=== PATIENT | female | born 1995 | race Caucasian/White ===

== ENCOUNTER 2019-02-06 04:13 | Emergency (ER) | payer OTHER ==
[~2019-02-06] VITALS: Ht 177.8 cm; Wt 125.8 kg
--- NOTE | 2019-02-06 04:36 | ED.ADGEN ---
Past History Past Medical History: Anxiety, Constipation, Depression, UTI Adult General Chief Complaint Chief Complaint ".. I got this really severe Rt. flank pain..-06/20.. " .." This started at 3 AM that will bring up.... I'm concerned that may be having a kidney stone because my dad has stones... my sister had kidney stones... " HPI HPI Patient is a 23 year old [place] who presents with above hx and Rt. flank pain. Patient denies any trauma. Pt. is very concerned she may be having a kidney stone because of strong family Hx. Patient herself has never had a renal stone verified. Patient denies any intake of bad food. Patient has had urinary tract infections in the past last was approximately a few months ago. Patient did have a stool today. Patient occasionally does have constipation. . Patient follows with Dr. Ruff in [facility]. No history of STDs. No history of pregnancies. Does have a history of diabetes, bipolar and anxiety. No recent travel. No specific ill contacts. No history of intake of bad food. Patient started acutely approximately 3 AM today. No history of vaginal discharge. No fears of STD. No history of trauma. Review of Systems Review of Systems Constitutional: Denies fever or chills [] Eyes: Denies change in visual acuity, redness, or eye pain [] HENT: Denies nasal congestion or sore throat [] Respiratory: Denies cough or shortness of breath [] Cardiovascular: No additional information not addressed in HPI [] GI: Complains of right flank abdomen pain, nausea,. Denies vomiting, bloody stools or diarrhea [] : Denies dysuria or hematuria [] Musculoskeletal: Denies back pain or joint pain [] Integument: Denies rash or skin lesions [] Neurologic: Denies headache, focal weakness or sensory changes [] Endocrine: Denies polyuria or polydipsia [] All other systems were reviewed and found to be within normal limits, except as documented in this note. Family History Family History Dad and sister have renal stones Current Medications Current Medications Current Medications Medications (Trade) Dose Ordered Sig/Rosalia Start Time Stop Time Status Last Admin Dose Admin Famotidine (Pepcid Vial) 20 mg 1X ONCE 02/06/19 05:30 02/06/19 05:31 DC 02/06/19 05:53 20 MG Info (Do NOT chart on this entry -- for MONITORING) 1 each PRN DAILY PRN 02/06/19 06:00 02/06/19 07:39 DC Iohexol (Omnipaque 240 Mg/ml) 30 ml 1X ONCE 02/06/19 06:00 02/06/19 06:01 DC 02/06/19 06:53 30 ML Iohexol (Omnipaque 300 Mg/ml) 75 ml 1X ONCE 02/06/19 06:00 02/06/19 06:01 DC 02/06/19 06:53 75 ML Ketorolac Tromethamine (Toradol 30mg Vial) 30 mg 1X ONCE 02/06/19 05:30 02/06/19 05:31 DC 02/06/19 05:54 30 MG Lactated Ringer's 1,000 ml @ 1,000 mls/hr Q1H 02/06/19 05:30 02/06/19 06:29 DC 02/06/19 05:48 1,000 MLS/HR Magnesium Hydroxide (Milk Of Magnesia) 2,400 mg 1X ONCE 02/06/19 07:15 02/06/19 07:22 DC 02/06/19 07:32 2,400 MG Ondansetron HCl (Zofran) 8 mg 1X ONCE 02/06/19 05:30 02/06/19 05:31 DC 02/06/19 05:52 8 MG Allergies Allergies Allergies Coded Allergies Type Severity Reaction Last Updated Verified doxycycline Allergy Unknown 02/06/19 Yes Physical Exam Physical Exam Constitutional: Moderately acute distress, non-toxic appearance. [] HENT: Normocephalic, atraumatic, bilateral external ears normal, oropharynx moist, no oral exudates, nose nasal ring Eyes: PERRLA, EOMI, conjunctiva normal, no discharge. [] Glasses Neck: Normal range of motion, no tenderness, supple, no stridor. [] Cardiovascular:Heart rate regular rhythm, no murmur [] Lungs & Thorax: Bilateral breath sounds equal at apexes on auscultation [] Abdomen: Bowel sounds normal, soft, right flank and upper right quadrant tenderness, distended, no masses, no pulsatile masses. Patient Defers vaginal and rectal exam at this time. No true rebound. Obese Skin: Warm, dry, no erythema, no rash. [] Back: No tenderness, right CVA tenderness. [] Extremities: No tenderness, no cyanosis, no clubbing, ROM intact, no edema. [No true psoas but does have some mild obturator sign. Tattoo of Rafa the cat- Left Ankle Neurologic: Alert and oriented X 3, normal motor function, normal sensory function, no focal deficits noted. [] Psychologic: Affect anxious, judgement normal, mood normal. [] Current Patient Data Vital Signs Vital Signs Date Time Temp Pulse Resp B/P (MAP) Pulse Ox O2 Delivery O2 Flow Rate FiO2 02/06/19 07:30 74 18 106/58 (74) 98 Room Air 02/06/19 04:20 98.6 Lab Results Laboratory Tests Test 02/06/19 04:45 02/06/19 04:56 02/06/19 05:38 Urine Collection Type Unknown Urine Color Yellow Urine Clarity Clear Urine pH 5.0 Urine Specific [place] >=1.030 Urine Protein Neg (NEG-TRACE) Urine Glucose (UA) Neg mg/dL (NEG) Urine Ketones (Stick) Trace mg/dL (NEG) Urine Blood Neg (NEG) Urine Nitrite Neg (NEG) Urine Bilirubin Neg (NEG) Urine Urobilinogen Dipstick 0.2 mg/dL (0.2 mg/dL) Urine Leukocyte Esterase Neg (NEG) Urine RBC 0 /HPF (0-2) Urine WBC Occ /HPF (0-4) Urine Squamous Epithelial Cells Few /LPF Urine Bacteria 0 /HPF (0-FEW) Urine Opiates Screen Neg (NEG) Urine Methadone Screen Neg (NEG) Urine Barbiturates Neg (NEG) Urine Phencyclidine Screen Neg (NEG) Urine Amphetamine/Methamphetamine Neg (NEG) Urine Benzodiazepines Screen Neg (NEG) Urine Cocaine Screen Neg (NEG) Urine Cannabinoids Screen Neg (NEG) Urine Ethyl Alcohol Neg (NEG) POC Urine HCG, Qualitative hcg negative (Negative) White Blood Count 12.6 x10^3/uL (4.0-11.0) H Red Blood Count 5.26 x10^6/uL (3.50-5.40) Hemoglobin 13.3 g/dL (12.0-15.5) Hematocrit 41.0 % (36.0-47.0) Mean Corpuscular Volume 78 fL (79-100) L Mean Corpuscular Hemoglobin 25 pg (25-35) Mean Corpuscular Hemoglobin Concent 32 g/dL (31-37) Red Cell Distribution Width 15.3 % (11.5-14.5) H Platelet Count 228 x10^3/uL (140-400) Neutrophils (%) (Auto) 69 % (31-73) Lymphocytes (%) (Auto) 23 % (24-48) L Monocytes (%) (Auto) 6 % (0-9) Eosinophils (%) (Auto) 1 % (0-3) Basophils (%) (Auto) 1 % (0-3) Neutrophils # (Auto) 8.7 x10^3uL (1.8-7.7) H Lymphocytes # (Auto) 2.9 x10^3/uL (1.0-4.8) Monocytes # (Auto) 0.7 x10^3/uL (0.0-1.1) Eosinophils # (Auto) 0.1 x10^3/uL (0.0-0.7) Basophils # (Auto) 0.1 x10^3/uL (0.0-0.2) Prothrombin Time 9.5 SEC (9.4-11.4) Prothrombin Time INR 1.0 (0.9-1.1) PTT 25 SEC (23-33) Sodium Level 139 mmol/L (136-145) Potassium Level 3.9 mmol/L (3.5-5.1) Chloride Level 103 mmol/L (98-107) Carbon Dioxide Level 29 mmol/L (21-32) Anion Gap 7 (6-14) Blood Urea Nitrogen 10 mg/dL (7-20) Creatinine 0.8 mg/dL (0.6-1.0) Estimated GFR (Cockcroft-Gault) 90.5 Glucose Level 96 mg/dL (70-99) Calcium Level 9.3 mg/dL (8.5-10.1) Total Bilirubin 0.2 mg/dL (0.2-1.0) Direct Bilirubin 0.1 mg/dL (0.0-0.2) Aspartate Amino Transferase (AST) 26 U/L (15-37) Alanine Aminotransferase (ALT) 48 U/L (14-59) Alkaline Phosphatase 84 U/L (46-116) Troponin I Quantitative < 0.017 ng/mL (0-0.055) Total Protein 7.6 g/dL (6.4-8.2) Albumin 3.6 g/dL (3.4-5.0) Lipase 104 U/L (73-393) EKG EKG [] Radiology/Procedures Radiology/Procedures I interpretation acute abdomen shows no acute cardiopulmonary findings. No free air in the diaphragm. There is stool throughout the colon. Some consideration for constipation.[] CT of abdomen and pelvis showed no obvious hydronephrosis, appendicitis, free fluid or significant surgical pathology. See formal report when available. Course & Med Decision Making Course & Med Decision Making Pertinent Labs and Imaging studies reviewed. (See chart for details) She stay on a clear fluid diet only for the next 48 hours. No solids no milk products must allow bowel rest. Push fluids. Follow up urine and lab results with primary. Follow-up CT results with primary. If no improvement must have reexam. Currently patient pain is minimal at time of discharge. Patient's pain is minimal at time of discharge. [] Final Impression Final Impression 1. Abdomen Pain[] 2. Constipation 3. Mild leukocytosis viral differential Dragon Disclaimer Dragon Disclaimer This electronic medical record was generated, in whole or in part, using a voice recognition dictation system. Dragon Disclaimer This chart was dictated in whole or in part using Voice Recognition software in a busy, high-work load, and often noisy Emergency Department environment. It may contain unintended and wholly unrecognized errors or omissions. Dragon Disclaimer This chart was dictated in whole or in part using Voice Recognition software in a busy, high-work load, and often noisy Emergency Department environment. It may contain unintended and wholly unrecognized errors or omissions. Discharge Summary Visit Information Final Diagnosis Problems Medical Problems: (1) Pain in the abdomen Status: Acute Brief Hospital Course Allergies Allergies Coded Allergies Type Severity Reaction Last Updated Verified doxycycline Allergy Unknown 02/06/19 Yes Vital Signs Vital Signs Date Time Temp Pulse Resp B/P (MAP) Pulse Ox O2 Delivery O2 Flow Rate FiO2 02/06/19 07:30 74 18 106/58 (74) 98 Room Air 02/06/19 04:20 98.6 Lab Results Laboratory Tests Test 02/06/19 04:45 02/06/19 04:56 02/06/19 05:38 Urine Collection Type Unknown Urine Color Yellow Urine Clarity Clear Urine pH 5.0 Urine Specific [place] >=1.030 Urine Protein Neg (NEG-TRACE) Urine Glucose (UA) Neg mg/dL (NEG) Urine Ketones (Stick) Trace mg/dL (NEG) Urine Blood Neg (NEG) Urine Nitrite Neg (NEG) Urine Bilirubin Neg (NEG) Urine Urobilinogen Dipstick 0.2 mg/dL (0.2 mg/dL) Urine Leukocyte Esterase Neg (NEG) Urine RBC 0 /HPF (0-2) Urine WBC Occ /HPF (0-4) Urine Squamous Epithelial Cells Few /LPF Urine Bacteria 0 /HPF (0-FEW) Urine Opiates Screen Neg (NEG) Urine Methadone Screen Neg (NEG) Urine Barbiturates Neg (NEG) Urine Phencyclidine Screen Neg (NEG) Urine Amphetamine/Methamphetamine Neg (NEG) Urine Benzodiazepines Screen Neg (NEG) Urine Cocaine Screen Neg (NEG) Urine Cannabinoids Screen Neg (NEG) Urine Ethyl Alcohol Neg (NEG) Bedside Urine HCG, Qualitative hcg negative (Negative) White Blood Count 12.6 x10^3/uL (4.0-11.0) Red Blood Count 5.26 x10^6/uL (3.50-5.40) Hemoglobin 13.3 g/dL (12.0-15.5) Hematocrit 41.0 % (36.0-47.0) Mean Corpuscular Volume 78 fL (79-100) Mean Corpuscular Hemoglobin 25 pg (25-35) Mean Corpuscular Hemoglobin Concent 32 g/dL (31-37) Red Cell Distribution Width 15.3 % (11.5-14.5) Platelet Count 228 x10^3/uL (140-400) Neutrophils (%) (Auto) 69 % (31-73) Lymphocytes (%) (Auto) 23 % (24-48) Monocytes (%) (Auto) 6 % (0-9) Eosinophils (%) (Auto) 1 % (0-3) Basophils (%) (Auto) 1 % (0-3) Neutrophils # (Auto) 8.7 x10^3uL (1.8-7.7) Lymphocytes # (Auto) 2.9 x10^3/uL (1.0-4.8) Monocytes # (Auto) 0.7 x10^3/uL (0.0-1.1) Eosinophils # (Auto) 0.1 x10^3/uL (0.0-0.7) Basophils # (Auto) 0.1 x10^3/uL (0.0-0.2) Prothrombin Time 9.5 SEC (9.4-11.4) Prothromb Time International Ratio 1.0 (0.9-1.1) Activated Partial Thromboplast Time 25 SEC (23-33) Sodium Level 139 mmol/L (136-145) Potassium Level 3.9 mmol/L (3.5-5.1) Chloride Level 103 mmol/L (98-107) Carbon Dioxide Level 29 mmol/L (21-32) Anion Gap 7 (6-14) Blood Urea Nitrogen 10 mg/dL (7-20) Creatinine 0.8 mg/dL (0.6-1.0) Estimated GFR (Cockcroft-Gault) 90.5 Glucose Level 96 mg/dL (70-99) Calcium Level 9.3 mg/dL (8.5-10.1) Total Bilirubin 0.2 mg/dL (0.2-1.0) Direct Bilirubin 0.1 mg/dL (0.0-0.2) Aspartate Amino Transf (AST/SGOT) 26 U/L (15-37) Alanine Aminotransferase (ALT/SGPT) 48 U/L (14-59) Alkaline Phosphatase 84 U/L (46-116) Troponin I Quantitative < 0.017 ng/mL (0-0.055) Total Protein 7.6 g/dL (6.4-8.2) Albumin 3.6 g/dL (3.4-5.0) Lipase 104 U/L (73-393) Brief Hospital Course Ms. Corey is a 23 old female who presented with Rt . upper and Rt. flank pain. Suspect component of constipation. No findings of Hydronephrosis or kidneys stone. Discharge Information Condition at Discharge: Improved, Stable Disposition/Orders: D/C to Home Dischare Medications Current Medications Lactated Ringer's 1,000 ml @ 1,000 mls/hr Q1H IV Last administered on at 05:48; Admin Dose 1,000 MLS/HR; Start 02/06/19 at 05:30; Stop 02/06/19 at 06:29; Status DC Ondansetron HCl (Zofran) 8 mg 1X ONCE IV Last administered on 02/06/19at 05:52 ; Admin Dose 8 MG; Start 02/06/19 at 05:30; Stop 02/06/19 at 05:31; Status DC Famotidine (Pepcid Vial) 20 mg 1X ONCE IVP Last administered on 02/06/19at 05: 53; Admin Dose 20 MG; Start 02/06/19 at 05:30; Stop 02/06/19 at 05:31; Status DC Ketorolac Tromethamine (Toradol 30mg Vial) 30 mg 1X ONCE IV Last administered on 02/06/19at 05:54; Admin Dose 30 MG; Start 02/06/19 at 05:30; Stop 02/06/19 at 05:31; Status DC Iohexol (Omnipaque 240 Mg/ml) 30 ml 1X ONCE PO Last administered on 02/06/19at 06:53; Admin Dose 30 ML; Start 02/06/19 at 06:00; Stop 02/06/19 at 06:01; Status DC Iohexol (Omnipaque 300 Mg/ml) 75 ml 1X ONCE IV Last administered on 02/06/19at 06:53; Admin Dose 75 ML; Start 02/06/19 at 06:00; Stop 02/06/19 at 06:01; Status DC Info (Do NOT chart on this entry -- for MONITORING) 1 each PRN DAILY PRN MC SEE COMMENTS; Start 02/06/19 at 06:00; Stop 02/06/19 at 07:39; Status DC Magnesium Hydroxide (Milk Of Magnesia) 2,400 mg 1X ONCE PO Last administered on 02/06/19at 07:32; Admin Dose 2,400 MG; Start 02/06/19 at 07:15; Stop 02/06/19 at 07:22; Status DC Discharge Summary Visit Information Final Diagnosis Problems Medical Problems: (1) Pain in the abdomen Status: Acute Brief Hospital Course Allergies Allergies Coded Allergies Type Severity Reaction Last Updated Verified doxycycline Allergy Unknown 02/06/19 Yes Vital Signs Vital Signs Date Time Temp Pulse Resp B/P (MAP) Pulse Ox O2 Delivery O2 Flow Rate FiO2 02/06/19 07:30 74 18 106/58 (74) 98 Room Air 02/06/19 04:20 98.6 Lab Results Laboratory Tests Test 02/06/19 04:45 02/06/19 04:56 02/06/19 05:38 Urine Collection Type Unknown Urine Color Yellow Urine Clarity Clear Urine pH 5.0 Urine Specific [place] >=1.030 Urine Protein Neg (NEG-TRACE) Urine Glucose (UA) Neg mg/dL (NEG) Urine Ketones (Stick) Trace mg/dL (NEG) Urine Blood Neg (NEG) Urine Nitrite Neg (NEG) Urine Bilirubin Neg (NEG) Urine Urobilinogen Dipstick 0.2 mg/dL (0.2 mg/dL) Urine Leukocyte Esterase Neg (NEG) Urine RBC 0 /HPF (0-2) Urine WBC Occ /HPF (0-4) Urine Squamous Epithelial Cells Few /LPF Urine Bacteria 0 /HPF (0-FEW) Urine Opiates Screen Neg (NEG) Urine Methadone Screen Neg (NEG) Urine Barbiturates Neg (NEG) Urine Phencyclidine Screen Neg (NEG) Urine Amphetamine/Methamphetamine Neg (NEG) Urine Benzodiazepines Screen Neg (NEG) Urine Cocaine Screen Neg (NEG) Urine Cannabinoids Screen Neg (NEG) Urine Ethyl Alcohol Neg (NEG) Bedside Urine HCG, Qualitative hcg negative (Negative) White Blood Count 12.6 x10^3/uL (4.0-11.0) Red Blood Count 5.26 x10^6/uL (3.50-5.40) Hemoglobin 13.3 g/dL (12.0-15.5) Hematocrit 41.0 % (36.0-47.0) Mean Corpuscular Volume 78 fL (79-100) Mean Corpuscular Hemoglobin 25 pg (25-35) Mean Corpuscular Hemoglobin Concent 32 g/dL (31-37) Red Cell Distribution Width 15.3 % (11.5-14.5) Platelet Count 228 x10^3/uL (140-400) Neutrophils (%) (Auto) 69 % (31-73) Lymphocytes (%) (Auto) 23 % (24-48) Monocytes (%) (Auto) 6 % (0-9) Eosinophils (%) (Auto) 1 % (0-3) Basophils (%) (Auto) 1 % (0-3) Neutrophils # (Auto) 8.7 x10^3uL (1.8-7.7) Lymphocytes # (Auto) 2.9 x10^3/uL (1.0-4.8) Monocytes # (Auto) 0.7 x10^3/uL (0.0-1.1) Eosinophils # (Auto) 0.1 x10^3/uL (0.0-0.7) Basophils # (Auto) 0.1 x10^3/uL (0.0-0.2) Prothrombin Time 9.5 SEC (9.4-11.4) Prothromb Time International Ratio 1.0 (0.9-1.1) Activated Partial Thromboplast Time 25 SEC (23-33) Sodium Level 139 mmol/L (136-145) Potassium Level 3.9 mmol/L (3.5-5.1) Chloride Level 103 mmol/L (98-107) Carbon Dioxide Level 29 mmol/L (21-32) Anion Gap 7 (6-14) Blood Urea Nitrogen 10 mg/dL (7-20) Creatinine 0.8 mg/dL (0.6-1.0) Estimated GFR (Cockcroft-Gault) 90.5 Glucose Level 96 mg/dL (70-99) Calcium Level 9.3 mg/dL (8.5-10.1) Total Bilirubin 0.2 mg/dL (0.2-1.0) Direct Bilirubin 0.1 mg/dL (0.0-0.2) Aspartate Amino Transf (AST/SGOT) 26 U/L (15-37) Alanine Aminotransferase (ALT/SGPT) 48 U/L (14-59) Alkaline Phosphatase 84 U/L (46-116) Troponin I Quantitative < 0.017 ng/mL (0-0.055) Total Protein 7.6 g/dL (6.4-8.2) Albumin 3.6 g/dL (3.4-5.0) Lipase 104 U/L (73-393) Brief Hospital Course Ms. Corey is a 23 old [sex] who presented with [ ] Discharge Information Dischare Medications Current Medications Lactated Ringer's 1,000 ml @ 1,000 mls/hr Q1H IV Last administered on at 05:48; Admin Dose 1,000 MLS/HR; Start 02/06/19 at 05:30; Stop 02/06/19 at 06:29; Status DC Ondansetron HCl (Zofran) 8 mg 1X ONCE IV Last administered on 02/06/19at 05:52 ; Admin Dose 8 MG; Start 02/06/19 at 05:30; Stop 02/06/19 at 05:31; Status DC Famotidine (Pepcid Vial) 20 mg 1X ONCE IVP Last administered on 02/06/19at 05: 53; Admin Dose 20 MG; Start 02/06/19 at 05:30; Stop 02/06/19 at 05:31; Status DC Ketorolac Tromethamine (Toradol 30mg Vial) 30 mg 1X ONCE IV Last administered on 02/06/19at 05:54; Admin Dose 30 MG; Start 02/06/19 at 05:30; Stop 02/06/19 at 05:31; Status DC Iohexol (Omnipaque 240 Mg/ml) 30 ml 1X ONCE PO Last administered on 02/06/19at 06:53; Admin Dose 30 ML; Start 02/06/19 at 06:00; Stop 02/06/19 at 06:01; Status DC Iohexol (Omnipaque 300 Mg/ml) 75 ml 1X ONCE IV Last administered on 02/06/19at 06:53; Admin Dose 75 ML; Start 02/06/19 at 06:00; Stop 02/06/19 at 06:01; Status DC Info (Do NOT chart on this entry -- for MONITORING) 1 each PRN DAILY PRN MC SEE COMMENTS; Start 02/06/19 at 06:00; Stop 02/06/19 at 07:39; Status DC Magnesium Hydroxide (Milk Of Magnesia) 2,400 mg 1X ONCE PO Last administered on 02/06/19at 07:32; Admin Dose 2,400 MG; Start 02/06/19 at 07:15; Stop 02/06/19 at 07:22; Status DC RENU ENG MD Feb 06, 2019 04:36
[2019-02-06] MEDS ORDERED: IV RINGERS SOLUTION,LACTATED 1,000 ML IV SCH (05:30)
[2019-02-06] MEDS ORDERED: ONDANSETRON PF 4 MG/2 ML VIAL. IV ONE (05:30)
[2019-02-06] MEDS ORDERED: FAMOTIDINE 20 MG/2 ML VIAL IVP ONE (05:30)
[2019-02-06] MEDS ORDERED: KETOROLAC 30 MG/ML VIAL. IV ONE (05:30)
[2019-02-06 05:33] LABS: BARBITURATES NEG (NEG); BENZODIAZEPINES NEG (NEG); CANNABINOIDS NEG (NEG); COCAINE NEG (NEG); METHADONE NEG (NEG); OPIATES NEG (NEG); PHENCYCLIDINE NEG (NEG)
[2019-02-06 05:35] LABS: BACTERIA,URINE 0 /HPF (0-FEW); BILIRUBIN,URINE NEG (NEG); CLARITY,URINE CLEAR; COLOR,URINE YELLOW; GLUCOSE,URINE NEG (NEG); NITRITE,URINE NEG (NEG); RBC,URINE 0 /HPF (0-2); SQUAMOUS EPITHELIAL CELL,UR FEW /LPF; UROBILINOGEN,URINE 0.2 mg/dL (0.2 mg/dL); WBC,URINE OCC /HPF (0-4)
[2019-02-06 05:37] LABS: AMPHETAMINE/METHAMPHETAMINE NEG (NEG)
--- NOTE | 2019-02-06 05:46 | RAD ---
Acute abdominal series to include a PA chest 02/06/2019 Clinical History: Abdominal pain. A PA digital radiograph of the chest was obtained. Supine and erect AP digital radiographs of the abdomen/pelvis were obtained. No previous studies are available for comparison. The cardiac and mediastinal silhouettes are within normal limits in size and configuration. No pulmonary infiltrate is seen. No pleural effusion or pneumothorax is noted. The abdominal bowel gas pattern is nonobstructive. A moderate amount stool seen throughout the colon. There is no evidence of free air. No radiopaque calculus is seen. The osseous structures are grossly intact. Impression: Negative study. Electronically signed by: Michele Ferreira MD (02/06/2019 5:43 AM) [id number]
[2019-02-06 05:54] LABS: BASO # 0.1 x10^3/uL (0.0-0.2); BASO % 1 % (0-3); EOS # 0.1 x10^3/uL (0.0-0.7); EOS % 1 % (0-3); HEMOGLOBIN 13.3 g/dL (12.0-15.5); LYMPH # 2.9 x10^3/uL (1.0-4.8); LYMPH % 23 % (24-48); MEAN CORPUSCULAR HEMOGLOBIN 25 pg (25-35); MEAN CORPUSCULAR HGB CONC 32 g/dL (31-37); MEAN CORPUSCULAR VOLUME 78 fL (79-100); MONO # 0.7 x10^3/uL (0.0-1.1); MONO % 6 % (0-9); NEUT # 8.7 x10^3uL (1.8-7.7); NEUT % 69 % (31-73); PLATELET COUNT 228 x10^3/uL (140-400); RED BLOOD COUNT 5.26 x10^6/uL (3.50-5.40); RED CELL DISTRIBUTION WIDTH 15.3 % (11.5-14.5); WHITE BLOOD COUNT 12.6 x10^3/uL (4.0-11.0)
[2019-02-06] MEDS ORDERED: IOHEXOL 240 MG/ML 50ML VIAL. PO ONE (06:00)
[2019-02-06] MEDS ORDERED: CONTRAST GIVEN MC PRN (06:00)
[2019-02-06] MEDS ORDERED: IOHEXOL 300 MG/ML 75 ML VIAL. IV ONE (06:00)
[2019-02-06 06:18] LABS: ALBUMIN 3.6 g/dL (3.4-5.0); CALCIUM 9.3 mg/dL (8.5-10.1); CREATININE 0.8 mg/dL (0.6-1.0); DIRECT BILIRUBIN 0.1 mg/dL (0.0-0.2); GFR 90.5; POTASSIUM 3.9 mmol/L (3.5-5.1); TOTAL BILIRUBIN 0.2 mg/dL (0.2-1.0)
[2019-02-06 06:37] LABS: TOTAL PROTEIN 7.6 g/dL (6.4-8.2)
[2019-02-06] MEDS ORDERED: MAGNESIUM HYDROXIDE 2,400 MG/30 ML ORAL.SUSP. PO ONE (07:15)
[2019-02-06 07:30] VITALS: BP 106/58
--- NOTE | 2019-02-06 07:40 | RAD ---
DATE OF SERVICE: 02/06/2019 5:39 AM EXAM: CT scan of the abdomen and pelvis with intravenous contrast. CLINICAL HISTORY: Right-sided abdominal and flank pain TECHNIQUE: Axial CT images were obtained through the abdomen and pelvis following the administration of intravenous and oral contrast. Multiplanar 2D reformatted images were also reviewed. Dose lowering technique(s) such as automated exposure control, iterative reconstruction, and mA and/or KV adjustment for patient size was utilized for this examination. CONTRAST: 75 ml of Omnipaque-300. COMPARISON: Abdominal radiographs dated 02/06/2018 at 5:20 AM and 5:21 AM. FINDINGS: An approximately 10 cm segment of the terminal ileum demonstrates mild circumferential mural thickening with mild relative mural hyperenhancement and there is mild hazy perienteric soft tissue density. This is consistent with a nonspecific terminal ileitis. Crohn's disease should be considered. There is mild ascites in the pelvis. There is no perienteric abscess, bowel obstruction, pneumatosis intestinalis, portomesenteric venous gas, or pneumoperitoneum. The appendix is normal in appearance. There is fatty infiltration of the liver. The gallbladder, biliary ductal system, pancreas, spleen, adrenal glands, and kidneys are unremarkable in appearance. The gynecologic structures demonstrate an unremarkable CT appearance. No abdominopelvic lymphadenopathy is seen. The abdominal aorta is normal in course and caliber without aneurysm or dissection. There is a small fat-containing umbilical hernia. Visualized portions of the lung bases are clear. There is a prominent broad-based central disc protrusion at the L4-5 vertebral level producing at least mild narrowing of the central spinal canal. IMPRESSION: 1. Nonspecific terminal ileitis with mild ascites in the pelvis. 2. Fatty infiltration of the liver. 3. Small fat-containing umbilical hernia. 4. Broad-based central disc protrusion at the L4-5 vertebral level. Electronically signed by: Solitario Caballero MD (02/06/2019 7:37 AM) [id number]
== END 2019-02-06 07:35 | disposition home or self-care (01) ==
LOC: ER 04:13
DX: K59.00 Constipation, unspecified (principal); D72.829 Elevated white blood cell count, unspecified; F41.9 Anxiety disorder, unspecified; E11.9 Type 2 diabetes mellitus without complications; F31.9 Bipolar disorder, unspecified; Z87.440 Personal history of urinary (tract) infections; Z88.1 Allergy status to other antibiotic agents
CPT/HCPCS: 36415; 74022; 74177; 80048; 80076; 80307; 81001; 81025; 83690; 84484; 85025; 85610; 85730; 96374; 96375; 99284; J1885; J2405; J3490; J7120; Q9966; Q9967

== ENCOUNTER 2019-02-08 23:31 | Emergency (ER) | payer OTHER ==
[~2019-02-08] VITALS: Ht 177.8 cm; Wt 127.0 kg
--- NOTE | 2019-02-08 23:40 | ED.ADGEN ---
Past History Past Medical History: Anxiety, Constipation, Depression, UTI Past Surgical History: No Surgical History Alcohol Use: Occasionally Drug Use: None Adult General Chief Complaint Chief Complaint ".. I was here the other day for abd. pain.. and I was constipated.. that was on ... but I ve been on clear fluid diet.. until today I ate sheikh cakes and other stuff... I am having loose stools now. .they are brown... but no longer hard.... but still having some generalized abdomen....it does seem to have become more localized.. to mid and Rt. lower..." " [facility] HPI Patient is a 23 year old female who presents with above hx and complaints recent episodes of constipation which has now resolved with the use of MOM. . Patient last CT showed findings consistent with non-specific terminal ileitis and marked constipation. There were no findings of abscess, bowel obstruction, pneumatosis or mesenteric gas or pneumoperitoneum. No obvious appendicitis. No abdominal pelvic adenopathy. Patient was noted to have a broad-based central disc protrusion at L4-[address] of 02/06. Pt. discomfort was more generalized at that time. Pt. was to stay on a clear fluid diet and if pain became localized would obtain CT with po contrast. Patient states pain has become more localized right lower and mid quadrant. Patient has been noncompliant with the clear fluid diet. Patient denies any travel or specific ill contacts. Patient denies any immunosuppression. Patient denies any trauma. No family hx of Crohn's or ulcerative colitis. Patient does give a history of irritable bowel syndrome. Patient denies any history of tarry stools or GI bleeding. Review of Systems Review of Systems Constitutional: Denies fever or chills [] Eyes: Denies change in visual acuity, redness, or eye pain [] HENT: Denies nasal congestion or sore throat [] Respiratory: Denies cough or shortness of breath [] Cardiovascular: No additional information not addressed in HPI [] GI: History abdominal pain, nausea, and constipation. Denies Vomiting, bloody stools . Now complaining of loose stools-has been taking milk of magnesia every night : Denies dysuria or hematuria [] Musculoskeletal: Denies back pain or joint pain [] Integument: Denies rash or skin lesions [] Neurologic: Denies headache, focal weakness or sensory changes [] Endocrine: Denies polyuria or polydipsia [] All other systems were reviewed and found to be within normal limits, except as documented in this note. Family History Family History Noncontributory Current Medications Current Medications Current Medications Medications (Trade) Dose Ordered Sig/Rosalia Start Time Stop Time Status Last Admin Dose Admin Ceftriaxone Sodium 1 gm/ Sodium Chloride 50 ml @ 100 mls/hr 1X ONCE 02/09/19 01:30 02/09/19 01:59 DC 02/09/19 01:50 100 MLS/HR Ceftriaxone Sodium (Rocephin) 1 gm STK-MED ONCE 02/09/19 01:46 02/09/19 01:47 DC Famotidine (Pepcid Vial) 20 mg 1X ONCE 02/09/19 00:15 02/09/19 00:16 DC 02/09/19 00:43 20 MG Info (Do NOT chart on this entry -- for MONITORING) 1 each PRN DAILY PRN 02/09/19 01:15 02/09/19 04:53 DC Iohexol (Omnipaque 240 Mg/ml) 50 ml STK-MED ONCE 02/09/19 01:10 02/09/19 01:11 DC Iohexol (Omnipaque 300 Mg/ml) 75 ml 1X ONCE 02/09/19 01:30 02/09/19 01:31 DC 02/09/19 02:40 75 ML Lactated Ringer's 1,000 ml @ 160 mls/hr 1X ONCE 02/09/19 02:00 02/09/19 04:53 DC 02/09/19 01:49 160 MLS/HR Metronidazole 100 ml @ 100 mls/hr 1X ONCE 02/09/19 01:30 02/09/19 02:29 DC 02/09/19 01:50 100 MLS/HR Ondansetron HCl (Zofran) 8 mg 1X ONCE 02/09/19 00:15 02/09/19 00:16 DC 02/09/19 00:43 8 MG Sodium Chloride 50 ml @ As Directed STK-MED ONCE 02/09/19 01:46 02/09/19 01:47 DC Allergies Allergies Allergies Coded Allergies Type Severity Reaction Last Updated Verified doxycycline Allergy Intermediate 02/09/19 Yes Physical Exam Physical Exam Constitutional: Moderately acute distress, non-toxic appearance. [] HENT: Normocephalic, atraumatic, bilateral external ears normal, oropharynx moist, no oral exudates, nose ring stud Eyes: PERRLA, EOMI, conjunctiva normal, no discharge. [] Neck: Normal range of motion, no tenderness, supple, no stridor. [] Cardiovascular:Heart rate regular rhythm, no murmur [] Lungs & Thorax: Bilateral breath sounds equal apexes few scattered wheezes on auscultation [] Abdomen: Bowel sounds hyperactive, soft, generalized tenderness with some localization to right lower quadrant no masses, no pulsatile masses. [] Mild rebound to right lower quadrant. Patient declines pelvic exam at this time. Morbidly obese. Skin: Warm, dry, no erythema, no rash. [] Back: No tenderness, no CVA tenderness. [] Extremities: No tenderness, no cyanosis, no clubbing, ROM intact, no edema. Very [Mild psoas right lower quadrant] Neurologic: Alert and oriented X 3, normal motor function, normal sensory function, no focal deficits noted. [] Psychologic: Affect anxious, judgement normal, mood normal. [] Current Patient Data Vital Signs Vital Signs Date Time Temp Pulse Resp B/P (MAP) Pulse Ox O2 Delivery O2 Flow Rate FiO2 02/09/19 04:45 82 18 120/60 (80) 98 Room Air 02/08/19 23:31 98.3 Lab Results Laboratory Tests Test 02/08/19 23:50 02/08/19 23:55 Urine Collection Type Unknown Urine Color Straw Urine Clarity Clear Urine pH 7.0 Urine Specific [place] 1.015 Urine Protein Neg (NEG-TRACE) Urine Glucose (UA) Neg mg/dL (NEG) Urine Ketones (Stick) Neg mg/dL (NEG) Urine Blood Neg (NEG) Urine Nitrite Neg (NEG) Urine Bilirubin Neg (NEG) Urine Urobilinogen Dipstick 0.2 mg/dL (0.2 mg/dL) Urine Leukocyte Esterase Neg (NEG) Urine RBC 0 /HPF (0-2) Urine WBC Occ /HPF (0-4) Urine Squamous Epithelial Cells Occ /LPF Urine Bacteria Few /HPF (0-FEW) Urine Test Negative (NEG) Urine Opiates Screen Neg (NEG) Urine Methadone Screen Neg (NEG) Urine Barbiturates Neg (NEG) Urine Phencyclidine Screen Neg (NEG) Urine Amphetamine/Methamphetamine Neg (NEG) Urine Benzodiazepines Screen Neg (NEG) Urine Cocaine Screen Neg (NEG) Urine Cannabinoids Screen Neg (NEG) Urine Ethyl Alcohol Neg (NEG) White Blood Count 9.2 x10^3/uL (4.0-11.0) Red Blood Count 5.01 x10^6/uL (3.50-5.40) Hemoglobin 12.6 g/dL (12.0-15.5) Hematocrit 39.2 % (36.0-47.0) Mean Corpuscular Volume 78 fL (79-100) L Mean Corpuscular Hemoglobin 25 pg (25-35) Mean Corpuscular Hemoglobin Concent 32 g/dL (31-37) Red Cell Distribution Width 15.3 % (11.5-14.5) H Platelet Count 217 x10^3/uL (140-400) Neutrophils (%) (Auto) 66 % (31-73) Lymphocytes (%) (Auto) 26 % (24-48) Monocytes (%) (Auto) 7 % (0-9) Eosinophils (%) (Auto) 1 % (0-3) Basophils (%) (Auto) 0 % (0-3) Neutrophils # (Auto) 6.1 x10^3uL (1.8-7.7) Lymphocytes # (Auto) 2.4 x10^3/uL (1.0-4.8) Monocytes # (Auto) 0.6 x10^3/uL (0.0-1.1) Eosinophils # (Auto) 0.1 x10^3/uL (0.0-0.7) Basophils # (Auto) 0.0 x10^3/uL (0.0-0.2) Prothrombin Time 9.6 SEC (9.4-11.4) Prothrombin Time INR 1.0 (0.9-1.1) PTT 24 SEC (23-33) Sodium Level 142 mmol/L (136-145) Potassium Level 3.4 mmol/L (3.5-5.1) L Chloride Level 104 mmol/L (98-107) Carbon Dioxide Level 27 mmol/L (21-32) Anion Gap 11 (6-14) Blood Urea Nitrogen 7 mg/dL (7-20) Creatinine 0.7 mg/dL (0.6-1.0) Estimated GFR (Cockcroft-Gault) 105.6 Glucose Level 108 mg/dL (70-99) H Calcium Level 9.1 mg/dL (8.5-10.1) Total Bilirubin 0.2 mg/dL (0.2-1.0) Direct Bilirubin < 0.1 mg/dL (0.0-0.2) Aspartate Amino Transferase (AST) 23 U/L (15-37) Alanine Aminotransferase (ALT) 40 U/L (14-59) Alkaline Phosphatase 80 U/L (46-116) Total Protein 7.3 g/dL (6.4-8.2) Albumin 3.5 g/dL (3.4-5.0) Amylase Level 24 U/L (25-115) L Lipase 75 U/L (73-393) EKG EKG [] Radiology/Procedures Radiology/Procedures I interpretation of acute abdomen film shows no acute cardiopulmonary findings. No free air in the diaphragm. Nonspecific bowel gas pattern. Despite of clear fluid diet still has stool in colon. Reviewed prior CT.[] CT tonight shows no obvious surgical pathology. No obvious inflammation. No adenopathy. See formal report when available Course & Med Decision Making Course & Med Decision Making Pertinent Labs and Imaging studies reviewed. (See chart for details) Patient's stay on a clear fluid diet if having marked abdomen pain. Patient advance to bland diet if abdomen pain improves. Must follow-up with Dr. Martinez review labs and CT scan completed here. Only recommend follow-up with GI and possible colonoscopy for evaluation of an inflammatory bowel disorder. Tylenol and ibuprofen for pain. Must follow-up. [] Final Impression Final Impression 1. Abdomen Pain[] 2. Recent history of constipation 3. Suspect IBS vs Inflammatory Bowel disorder- Ulcerative colitis or Crohn's 4. Central disc herniation at L4 and 5 Dragon Disclaimer Dragon Disclaimer This electronic medical record was generated, in whole or in part, using a voice recognition dictation system. Discharge Summary Visit Information Final Diagnosis Problems Medical Problems: (1) Pain in the abdomen Status: Acute Brief Hospital Course Allergies Allergies Coded Allergies Type Severity Reaction Last Updated Verified doxycycline Allergy Intermediate 02/09/19 Yes Vital Signs Vital Signs Date Time Temp Pulse Resp B/P (MAP) Pulse Ox O2 Delivery O2 Flow Rate FiO2 02/09/19 04:45 82 18 120/60 (80) 98 Room Air 02/08/19 23:31 98.3 Lab Results Laboratory Tests Test 02/08/19 23:50 02/08/19 23:55 Urine Collection Type Unknown Urine Color Straw Urine Clarity Clear Urine pH 7.0 Urine Specific [place] 1.015 Urine Protein Neg (NEG-TRACE) Urine Glucose (UA) Neg mg/dL (NEG) Urine Ketones (Stick) Neg mg/dL (NEG) Urine Blood Neg (NEG) Urine Nitrite Neg (NEG) Urine Bilirubin Neg (NEG) Urine Urobilinogen Dipstick 0.2 mg/dL (0.2 mg/dL) Urine Leukocyte Esterase Neg (NEG) Urine RBC 0 /HPF (0-2) Urine WBC Occ /HPF (0-4) Urine Squamous Epithelial Cells Occ /LPF Urine Bacteria Few /HPF (0-FEW) Urine Test Negative (NEG) Urine Opiates Screen Neg (NEG) Urine Methadone Screen Neg (NEG) Urine Barbiturates Neg (NEG) Urine Phencyclidine Screen Neg (NEG) Urine Amphetamine/Methamphetamine Neg (NEG) Urine Benzodiazepines Screen Neg (NEG) Urine Cocaine Screen Neg (NEG) Urine Cannabinoids Screen Neg (NEG) Urine Ethyl Alcohol Neg (NEG) White Blood Count 9.2 x10^3/uL (4.0-11.0) Red Blood Count 5.01 x10^6/uL (3.50-5.40) Hemoglobin 12.6 g/dL (12.0-15.5) Hematocrit 39.2 % (36.0-47.0) Mean Corpuscular Volume 78 fL (79-100) Mean Corpuscular Hemoglobin 25 pg (25-35) Mean Corpuscular Hemoglobin Concent 32 g/dL (31-37) Red Cell Distribution Width 15.3 % (11.5-14.5) Platelet Count 217 x10^3/uL (140-400) Neutrophils (%) (Auto) 66 % (31-73) Lymphocytes (%) (Auto) 26 % (24-48) Monocytes (%) (Auto) 7 % (0-9) Eosinophils (%) (Auto) 1 % (0-3) Basophils (%) (Auto) 0 % (0-3) Neutrophils # (Auto) 6.1 x10^3uL (1.8-7.7) Lymphocytes # (Auto) 2.4 x10^3/uL (1.0-4.8) Monocytes # (Auto) 0.6 x10^3/uL (0.0-1.1) Eosinophils # (Auto) 0.1 x10^3/uL (0.0-0.7) Basophils # (Auto) 0.0 x10^3/uL (0.0-0.2) Prothrombin Time 9.6 SEC (9.4-11.4) Prothromb Time International Ratio 1.0 (0.9-1.1) Activated Partial Thromboplast Time 24 SEC (23-33) Sodium Level 142 mmol/L (136-145) Potassium Level 3.4 mmol/L (3.5-5.1) Chloride Level 104 mmol/L (98-107) Carbon Dioxide Level 27 mmol/L (21-32) Anion Gap 11 (6-14) Blood Urea Nitrogen 7 mg/dL (7-20) Creatinine 0.7 mg/dL (0.6-1.0) Estimated GFR (Cockcroft-Gault) 105.6 Glucose Level 108 mg/dL (70-99) Calcium Level 9.1 mg/dL (8.5-10.1) Total Bilirubin 0.2 mg/dL (0.2-1.0) Direct Bilirubin < 0.1 mg/dL (0.0-0.2) Aspartate Amino Transf (AST/SGOT) 23 U/L (15-37) Alanine Aminotransferase (ALT/SGPT) 40 U/L (14-59) Alkaline Phosphatase 80 U/L (46-116) Total Protein 7.3 g/dL (6.4-8.2) Albumin 3.5 g/dL (3.4-5.0) Amylase Level 24 U/L (25-115) Lipase 75 U/L (73-393) Brief Hospital Course Ms. Corey is a 23 old female who presented with abd. pain. No obvious surgical pathology found. Suspect Inflammatory bowel disorder. Pt. to follow with GI and Primary. Discharge Information Condition at Discharge: Improved, Stable Disposition/Orders: D/C to Home Dischare Medications Current Medications Lactated Ringer's 1,000 ml @ 1,000 mls/hr Q1H IV Last administered on at 00:42; Admin Dose 1,000 MLS/HR; Start 02/09/19 at 00:00; Stop 02/09/19 at 00: 59; Status DC Ondansetron HCl (Zofran) 8 mg 1X ONCE IV Last administered on 02/09/19at 00:43; Admin Dose 8 MG; Start 02/09/19 at 00:15; Stop 02/09/19 at 00:16; Status DC Famotidine (Pepcid Vial) 20 mg 1X ONCE IVP Last administered on 02/09/19at 00:43 ; Admin Dose 20 MG; Start 02/09/19 at 00:15; Stop 02/09/19 at 00:16; Status DC Sodium Chloride 1,000 ml @ 100 mls/hr Q10H IV ; Start 02/09/19 at 00:30; Stop at 01:43; Status DC Ceftriaxone Sodium 1 gm/ Sodium Chloride 50 ml @ 100 mls/hr 1X ONCE IV Last administered on 02/09/19at 01:50; Admin Dose 100 MLS/HR; Start 02/09/19 at 01:30; Stop 02/09/19 at 01:59; Status DC Metronidazole 100 ml @ 100 mls/hr 1X ONCE IV Last administered on 02/09/19at 01 :50; Admin Dose 100 MLS/HR; Start 02/09/19 at 01:30; Stop 02/09/19 at 02:29; Status DC Iohexol (Omnipaque 240 Mg/ml) 50 ml 1X ONCE PO Last administered on 02/09/19at 02:40; Admin Dose 50 ML; Start 02/09/19 at 01:30; Stop 02/09/19 at 01:31; Status DC Iohexol (Omnipaque 300 Mg/ml) 75 ml 1X ONCE IV Last administered on 02/09/19at 02:40; Admin Dose 75 ML; Start 02/09/19 at 01:30; Stop 02/09/19 at 01:31; Status DC Iohexol (Omnipaque 240 Mg/ml) 50 ml STK-MED ONCE .ROUTE ; Start 02/09/19 at 01:10 ; Stop 02/09/19 at 01:11; Status DC Info (Do NOT chart on this entry -- for MONITORING) 1 each PRN DAILY PRN MC SEE COMMENTS; Start 02/09/19 at 01:15; Stop 02/09/19 at 04:53; Status DC Lactated Ringer's 1,000 ml @ 160 mls/hr 1X ONCE IV Last administered on at 01:49; Admin Dose 160 MLS/HR; Start 02/09/19 at 02:00; Stop 02/09/19 at 04:53 ; Status DC Sodium Chloride 50 ml @ As Directed STK-MED ONCE .ROUTE ; Start 02/09/19 at 01:46 ; Stop 02/09/19 at 01:47; Status DC Ceftriaxone Sodium (Rocephin) 1 gm STK-MED ONCE .ROUTE ; Start 02/09/19 at 01:46 ; Stop 02/09/19 at 01:47; Status DC Dragon Disclaimer This chart was dictated in whole or in part using Voice Recognition software in a busy, high-work load, and often noisy Emergency Department environment. It may contain unintended and wholly unrecognized errors or omissions. RENU ENG MD Feb 08, 2019 23:40
[2019-02-09] MEDS ORDERED: IV RINGERS SOLUTION,LACTATED 1,000 ML IV SCH
[2019-02-09] MEDS ORDERED: FAMOTIDINE 20 MG/2 ML VIAL IVP ONE (00:15)
[2019-02-09] MEDS ORDERED: ONDANSETRON PF 4 MG/2 ML VIAL. IV ONE (00:15)
[2019-02-09 00:17] LABS: BASO % 0 % (0-3); EOS # 0.1 x10^3/uL (0.0-0.7); EOS % 1 % (0-3); HEMATOCRIT 39.2 % (36.0-47.0); HEMOGLOBIN 12.6 g/dL (12.0-15.5); LYMPH # 2.4 x10^3/uL (1.0-4.8); LYMPH % 26 % (24-48); MEAN CORPUSCULAR HEMOGLOBIN 25 pg (25-35); MEAN CORPUSCULAR HGB CONC 32 g/dL (31-37); MEAN CORPUSCULAR VOLUME 78 fL (79-100); MONO # 0.6 x10^3/uL (0.0-1.1); MONO % 7 % (0-9); NEUT # 6.1 x10^3uL (1.8-7.7); NEUT % 66 % (31-73); PLATELET COUNT 217 x10^3/uL (140-400); RED BLOOD COUNT 5.01 x10^6/uL (3.50-5.40); RED CELL DISTRIBUTION WIDTH 15.3 % (11.5-14.5); WHITE BLOOD COUNT 9.2 x10^3/uL (4.0-11.0)
[2019-02-09 00:26] LABS: BARBITURATES NEG (NEG); BENZODIAZEPINES NEG (NEG); CANNABINOIDS NEG (NEG); COCAINE NEG (NEG); METHADONE NEG (NEG); OPIATES NEG (NEG); PHENCYCLIDINE NEG (NEG)
[2019-02-09 00:28] LABS: ALBUMIN 3.5 g/dL (3.4-5.0); ALK PHOS 80 U/L (46-116); ALT (SGPT) 40 U/L (14-59); AMYLASE 24 U/L (25-115); ANION GAP 11 (6-14); AST (SGOT) 23 U/L (15-37); BLOOD UREA NITROGEN 7 mg/dL (7-20); CALCIUM 9.1 mg/dL (8.5-10.1); CARBON DIOXIDE 27 mmol/L (21-32); CHLORIDE 104 mmol/L (98-107); CREATININE 0.7 mg/dL (0.6-1.0); DIRECT BILIRUBIN < 0.1 mg/dL (0.0-0.2); GFR 105.6; GLUCOSE 108 mg/dL (70-99); LIPASE 75 U/L (73-393); POTASSIUM 3.4 mmol/L (3.5-5.1); SODIUM 142 mmol/L (136-145); TOTAL BILIRUBIN 0.2 mg/dL (0.2-1.0); TOTAL PROTEIN 7.3 g/dL (6.4-8.2)
[2019-02-09 00:28] LABS: AMPHETAMINE/METHAMPHETAMINE NEG (NEG)
[2019-02-09] MEDS ORDERED: IV NORMAL SALINE 1,000ML 1,000 ML IV SCH (00:30)
[2019-02-09 00:37] LABS: BACTERIA,URINE FEW /HPF (0-FEW); BILIRUBIN,URINE NEG (NEG); CLARITY,URINE CLEAR; COLOR,URINE STRAW; GLUCOSE,URINE NEG (NEG); NITRITE,URINE NEG (NEG); RBC,URINE 0 /HPF (0-2); SQUAMOUS EPITHELIAL CELL,UR OCC /LPF; UROBILINOGEN,URINE 0.2 mg/dL (0.2 mg/dL); WBC,URINE OCC /HPF (0-4)
[2019-02-09] MEDS ORDERED: IOHEXOL 240 MG/ML 50ML VIAL. ONE (01:10)
[2019-02-09 01:15] LABS: U PREG PATIENT NEGATIVE (NEG)
[2019-02-09] MEDS ORDERED: CONTRAST GIVEN MC PRN (01:15)
[2019-02-09] MEDS ORDERED: IOHEXOL 300 MG/ML 75 ML VIAL. IV ONE (01:30)
[2019-02-09] MEDS ORDERED: IOHEXOL 240 MG/ML 50ML VIAL. PO ONE (01:30)
[2019-02-09] MEDS ORDERED: cefTRIAXone SODIUM 1 GM VIAL ONE (01:46)
[2019-02-09] MEDS ORDERED: IV NORMAL SALINE 50ML 50 ML ONE (01:46)
[2019-02-09] MEDS ORDERED: IV RINGERS SOLUTION,LACTATED 1,000 ML IV ONE (02:00)
--- NOTE | 2019-02-09 02:01 | RAD ---
Acute Abdominal Series: Technique: PA view of the chest and supine and upright views of the abdomen were obtained. History: Pain. Comparison: None. Findings: The lungs and pleural margins are clear. The bowel gas pattern appears normal. There is no free air. Impression: Radiographically normal acute abdominal series. Electronically signed by: Dominik Arana III, MD (02/09/2019 1:58 AM) [id number]
--- NOTE | 2019-02-09 03:10 | RAD ---
CT SCAN OF THE ABDOMEN AND PELVIS WITH IV CONTRAST. History: Right lower quadrant pain Comparison:None. Procedure: Contiguous axial images of the abdomen and pelvis were performed after the administration of 75 cc of Omni 300 IV contrast and oral contrast. CT Abdomen with contrast: Findings: Liver: Unremarkable Spleen: Unremarkable Pancreas: Unremarkable Adrenal Glands: Unremarkable Kidneys: Unremarkable There is no mass or lymphadenopathy. There is no free air. There is no free fluid. Impression: No acute findings. End Impression CT Pelvis with Contrast: Findings: The urinary bladder appears normal. There is no free fluid. There is no lymphadenopathy. The appendix is not well seen but appears normal. The uterus and ovaries appear within normal limits. Impression: No acute findings. PQRS Compliance Statement: One or more of the following individualized dose reduction techniques were utilized for this examination: 1. Automated exposure control 2. Adjustment of the mA and/or kV according to patient size 3. Use of iterative reconstruction technique Electronically signed by: Dominik Arana III, MD (02/09/2019 3:07 AM) [id number]
[2019-02-09 04:45] VITALS: BP 120/60
== END 2019-02-09 04:45 | disposition home or self-care (01) ==
LOC: ER 23:31
DX: R10.84 Generalized abdominal pain (principal); M51.26 Other intervertebral disc displacement, lumbar region; R10.31 Right lower quadrant pain; R19.7 Diarrhea, unspecified; F41.9 Anxiety disorder, unspecified; F32.9 Major depressive disorder, single episode, unspecified; Z87.440 Personal history of urinary (tract) infections; Z88.1 Allergy status to other antibiotic agents
CPT/HCPCS: 36415; 74022; 74177; 80048; 80076; 80307; 81001; 81025; 82150; 83690; 85025; 85610; 85730; 96361; 96365; 96366; 96368; 96375; 99285; J0696; J2405; J3490; J7120; Q9966; Q9967

== ENCOUNTER 2019-02-15 01:31 | Emergency (ER) | payer OTHER ==
[~2019-02-15] VITALS: Ht 177.8 cm; Wt 122.5 kg
[2019-02-15 01:57] VITALS: BP 127/75
[2019-02-15 02:37] LABS: BASO # 0.1 x10^3/uL (0.0-0.2); BASO % 1 % (0-3); EOS # 0.1 x10^3/uL (0.0-0.7); EOS % 1 % (0-3); HEMATOCRIT 37.5 % (36.0-47.0); HEMOGLOBIN 12.2 g/dL (12.0-15.5); LYMPH % 29 % (24-48); MEAN CORPUSCULAR HEMOGLOBIN 26 pg (25-35); MEAN CORPUSCULAR HGB CONC 33 g/dL (31-37); MEAN CORPUSCULAR VOLUME 78 fL (79-100); MONO # 0.7 x10^3/uL (0.0-1.1); MONO % 7 % (0-9); NEUT # 6.2 x10^3uL (1.8-7.7); NEUT % 61 % (31-73); PLATELET COUNT 220 x10^3/uL (140-400); RED CELL DISTRIBUTION WIDTH 15.5 % (11.5-14.5); WHITE BLOOD COUNT 10.2 x10^3/uL (4.0-11.0)
[2019-02-15 02:46] LABS: ALBUMIN 3.2 g/dL (3.4-5.0); ALBUMIN/GLOBULIN RATIO 0.9 (1.0-1.7); CREATININE 0.8 mg/dL (0.6-1.0); GFR 90.5; POTASSIUM 3.6 mmol/L (3.5-5.1); TOTAL BILIRUBIN 0.2 mg/dL (0.2-1.0); TOTAL PROTEIN 6.9 g/dL (6.4-8.2)
--- NOTE | 2019-02-15 03:05 | PHYS DOC ---
Past History Past Medical History: Anxiety, Constipation, Depression, GERD, Hypertension, UTI Past Surgical History: No Surgical History Alcohol Use: Occasionally Drug Use: None Adult General Chief Complaint Chief Complaint: ABDOMINAL PAIN HPI HPI Patient is a 23-year-old female who presents with complaint of continued abdominal pain that has been going on for over a week now. Patient has been seen in the emergency room 2 prior times and has also seen her primary doctor twice since onset of pain. Patient has had 2 CAT scans already which have been unrevealing. Patient states that she became concerned because her pain radiated up into her upper abdomen below her rib cage. She rates pain as being moderate. Review of Systems Review of Systems Constitutional: Denies fever or chills [] Respiratory: Denies cough or shortness of breath [] Cardiovascular: No additional information not addressed in HPI [] GI: Complains of upper and lower abdominal pain [] : Denies dysuria or hematuria [] All other systems were reviewed and found to be within normal limits, except as documented in this note. Allergies Allergies Allergies Coded Allergies Type Severity Reaction Last Updated Verified doxycycline Allergy Intermediate 02/09/19 Yes Physical Exam Physical Exam Constitutional: Well developed, well nourished, no acute distress, non-toxic appearance. [] HENT: Normocephalic, atraumatic, bilateral external ears normal, oropharynx moist, no oral exudates, nose normal. [] Eyes: PERRLA, EOMI, conjunctiva normal, no discharge. [] Neck: Normal range of motion, no tenderness, supple, no stridor. [] Cardiovascular:Heart rate regular rhythm, no murmur [] Lungs & Thorax: Bilateral breath sounds clear to auscultation [] Abdomen: Bowel sounds normal, soft, with upper and lower abdominal tenderness. [ ] Skin: Warm, dry, no erythema, no rash. [] Extremities: No tenderness, no cyanosis, no clubbing, ROM intact, no edema. [] Neurologic: Alert and oriented X 3, no focal deficits noted. [] Current Patient Data Vital Signs Vital Signs Date Time Temp Pulse Resp B/P (MAP) Pulse Ox O2 Delivery O2 Flow Rate FiO2 02/15/19 01:57 97.5 90 18 98 Room Air Lab Results Laboratory Tests Test 02/15/19 01:58 02/15/19 02:15 POC Urine HCG, Qualitative hcg negative (Negative) White Blood Count 10.2 x10^3/uL (4.0-11.0) Red Blood Count 4.80 x10^6/uL (3.50-5.40) Hemoglobin 12.2 g/dL (12.0-15.5) Hematocrit 37.5 % (36.0-47.0) Mean Corpuscular Volume 78 fL (79-100) L Mean Corpuscular Hemoglobin 26 pg (25-35) Mean Corpuscular Hemoglobin Concent 33 g/dL (31-37) Red Cell Distribution Width 15.5 % (11.5-14.5) H Platelet Count 220 x10^3/uL (140-400) Neutrophils (%) (Auto) 61 % (31-73) Lymphocytes (%) (Auto) 29 % (24-48) Monocytes (%) (Auto) 7 % (0-9) Eosinophils (%) (Auto) 1 % (0-3) Basophils (%) (Auto) 1 % (0-3) Neutrophils # (Auto) 6.2 x10^3uL (1.8-7.7) Lymphocytes # (Auto) 3.0 x10^3/uL (1.0-4.8) Monocytes # (Auto) 0.7 x10^3/uL (0.0-1.1) Eosinophils # (Auto) 0.1 x10^3/uL (0.0-0.7) Basophils # (Auto) 0.1 x10^3/uL (0.0-0.2) Sodium Level 140 mmol/L (136-145) Potassium Level 3.6 mmol/L (3.5-5.1) Chloride Level 105 mmol/L (98-107) Carbon Dioxide Level 26 mmol/L (21-32) Anion Gap 9 (6-14) Blood Urea Nitrogen 12 mg/dL (7-20) Creatinine 0.8 mg/dL (0.6-1.0) Estimated GFR (Cockcroft-Gault) 90.5 BUN/Creatinine Ratio 15 (6-20) Glucose Level 116 mg/dL (70-99) H Calcium Level 9.0 mg/dL (8.5-10.1) Total Bilirubin 0.2 mg/dL (0.2-1.0) Aspartate Amino Transferase (AST) 18 U/L (15-37) Alanine Aminotransferase (ALT) 35 U/L (14-59) Alkaline Phosphatase 100 U/L (46-116) Total Protein 6.9 g/dL (6.4-8.2) Albumin 3.2 g/dL (3.4-5.0) L Albumin/Globulin Ratio 0.9 (1.0-1.7) L Lipase 97 U/L (73-393) EKG EKG [] Radiology/Procedures Radiology/Procedures [] Impressions: Abdominal series demonstrates no acute abnormalities. Course & Med Decision Making Course & Med Decision Making Pertinent Labs and Imaging studies reviewed. (See chart for details) [] Dragon Disclaimer Dragon Disclaimer This electronic medical record was generated, in whole or in part, using a voice recognition dictation system. Departure Departure: Impression: Primary Impression: Abdominal pain Additional Impression: Drug-seeking behavior Disposition: HOME, SELF-CARE Condition: STABLE Referrals: DESTINY CARLSON (PCP) Patient Instructions: Abdominal Pain Scripts Ondansetron Hcl (ZOFRAN) 4 Mg Tablet 4 MG PO Q6HRS PRN for NAUSEA/VOMITING, #12 TAB Prov: ALLISON PACHECO Jr. DO 02/15/19 Dicyclomine Hcl (DICYCLOMINE HCL) 10 Mg Capsule 1 CAP PO TID PRN for abdominal pain, #30 CAP Prov: ALLISON PACHECO Jr. DO 02/15/19 Problem Qualifiers Primary Impression: Abdominal pain Abdominal location: generalized Qualified Codes: R10.84 - Generalized abdominal pain ALLISON PACHECO Jr. DO Feb 15, 2019 03:05
[2019-02-15] MEDS ORDERED: ONDA4TAB7 PO (03:11)
[2019-02-15] MEDS ORDERED: DICY10CA3 PO (03:11)
--- NOTE | 2019-02-15 07:53 | RAD ---
ACUTE ABDOMEN SERIES History: Epigastric and lower central abdominal pain x1 week. No injury or surgery Comparison: CT abdomen pelvis dated 02/09/2019. Findings: Frontal chest and supine and upright views of the abdomen. Normal lung volume. No focal consolidations. Normal pulmonary vasculature. No pleural effusion or pneumothorax. The cardiomediastinal silhouette is normal. The great vessels of the thorax are normal. No obvious free air. Nonobstructive bowel gas pattern. Moderate colonic stool. No abnormal calcifications. No acute osseous abnormality. IMPRESSION: 1. No acute cardiopulmonary process. 2. Nonobstructive bowel gas pattern. Moderate colonic stool. Electronically signed by: Abiodun Up MD (02/15/2019 7:50 AM) [facility]
== END 2019-02-15 03:10 | disposition home or self-care (01) ==
LOC: ER 01:31
DX: R10.84 Generalized abdominal pain (principal); Z76.5 Malingerer [conscious simulation]; F41.9 Anxiety disorder, unspecified; F32.9 Major depressive disorder, single episode, unspecified; K21.9 Gastro-esophageal reflux disease without esophagitis; I10 Essential (primary) hypertension; Z87.440 Personal history of urinary (tract) infections; Z88.1 Allergy status to other antibiotic agents
CPT/HCPCS: 36415; 74022; 80053; 81025; 83690; 85025; 99284